=== PATIENT | female | born 1960 | race Caucasian/White ===

== ENCOUNTER 2018-05-20 00:20 | Outpatient (CLI) | payer BC, SELFPAY ==
--- NOTE | 2018-05-20 08:15 | MERGEMPI_ITS ---
*[facility]* *[facility]* [address] [place] [address] Myocardial Perfusion Imaging - SPECT Gilles protocol Date of study: 05/20/2018 *PATIENT PRESENTATION* Height: 172.7cm (68in) Blood Pressure: Weight: 95kg (209lb) BSA: 2.17m^2 Ordering physician: Dae Huff Impressions: - Normal perfusion and contraction by Tc99m Sestamibi Imaging. - Chest pain and borderline EKG changes without imaging correlate. Summary: 1. Myocardial perfusion imaging: No myocardial perfusion defects noted. 2. The calculated left ventricular ejection fraction after stress: 61%. LV global systolic function is normal. 3. Stress ECG conclusions: The stress ECG is borderline. The specificity of this test is limited by resting ECG abnormalities. Occasional atrial ectopy. 4. Stress: The target heart rate was achieved. The heart rate response to stress is exaggerated. There is a normal resting blood pressure with an appropriate response to stress. Stress-induced chest pain which resolved spontaneously. Exercise capacity is average for age. Indication: R07.9. History: Patient's presenting symptoms: asymptomatic. REASON FOR VISIT: PATIENT REPORTS INCREASE IN CHEST PAIN OCCURENCES WITHIN THE LAST YEAR DESPITE WEARING 2 NITRO PATCHES DAILY, REQUIRING PATIENT TO TAKE PO NITRO FOR CHEST PAIN RELIEF. CHEST PAIN IS REPORTED 8/10 STERNAL CHEST TIGHTNESS RADIATING TOWARDS BACK. PAIN OCCURS AT REST, HAS WOKEN PATIENT UP FROM SLEEP, AND LASTS UNTIL PATIENT TAKES PO NITRO. STRESS TEST RECOMMENDED BY CARDIOLOGY FOR FOLLOW UP. PAST MEDICAL HISTORY: CARDIAC SYNDROME X, HYPOTHYROIDISM, EPILEPSY. FAMILY HISTORY: NONE. SMOKING STATUS: NEVER SMOKER. EXERCISE ROUTINE: WALKS 2 MILES 3X/WEEK. Risk factors: Dyslipidemia. Cholesterol: 219mg/dl. HDL: 128mg/dl. LDL: 69mg/dl. Triglycerides: 33mg/dl. ALLERGIES: SULFA, PENICILLINS, SHELLFISH DERIVED, SULFAMETHOXAZOLE, TRIMETHOPRIM, PHENYTOIN. MEDICATIONS: CALCIUM, MAGNESIUM, & VITAMIN D, DAILY. CARBAMAZEPINE 1 TAB, BID. CITALOPRAM 10MG, DAILY. LEVOTHYROXINE 100MCG, DAILY. NITROGLYCERIN 0.4MG, PRN. NITROGLYCERIN 2 PATCHES, DAILY. OMEGA-3 FATTY ACIDS 2 EACH, DAILY. PANTOPRAZOLE 40MG, DAILY. VERAPAMIL 120MG, BID. Imaging Technique: Protocol: Gilles protocol. Acquisition: Gated SPECT; 1 day - rest/stress. The patient was imaged in the supine position. Attenuation correction used. Isotope administration: - Rest. Tc[99m]-sestamibi. Dose: 9.5mCi. Injection time: 10:00 AM. Injection to stress time: 00:45. - Stress. Tc[99m]-sestamibi. Dose: 32mCi. Injection time: 11:55 AM. 1-2 min before end of exercise Baseline ECG: SINUS RHYTHM. HEART RATE [address] depression in inferolateral leads. Stress protocol: + +---+ +---+ + + !Stage !HR !BP (mmHg) !Sat!Rhythm !Symptoms ! + +---+ +---+ + + !Baseline supine !60 !128/82 (97) !---! ! ! + +---+ +---+ + + !Baseline !65 !125/62 (83) !98%! ! ! !standing ! ! ! ! ! ! + +---+ +---+ + + !Stage I; 1.7mph,!122!150/74 (99) !---! !5 out of 10 ! !10degrees; 3 min! ! ! ! !chest discomfort! + +---+ +---+ + + !Stage II; !---! !---! !8 out of 10 ! !2.5mph, ! ! ! ! !chest ! !12degrees; 3 min! ! ! ! !discomfort, ! ! ! ! ! ! !moderate dyspnea! + +---+ +---+ + + !Peak stress !148! !---! ! ! + +---+ +---+ + + !Recovery; 1 min !106!194/88 (123)!---!Occasional !5 out of 10 ! ! ! ! ! !PAC's !chest discomfort! + +---+ +---+ + + !Recovery; 3 min !71 !160/78 (105)!---! !Resolved, 2 out ! ! ! ! ! ! !of 10 chest ! ! ! ! ! ! !discomfort ! + +---+ +---+ + + !Recovery; 6 min !75 !114/70 (85) !---! ! ! + +---+ +---+ + + * Stress results: Maximal heart rate during stress was 148bpm (91% of maximal predicted heart rate). The maximal predicted heart rate was 163bpm. The target heart rate was achieved. The heart rate response to stress is exaggerated. There is a normal resting blood pressure with an appropriate response to stress. The rate-pressure product for the peak heart rate and blood pressure was 08512us Hg/min. Stress-induced chest pain which resolved spontaneously. Exercise capacity is average for age. Stress ECG: TREADMILL PORTION OF EXERCISE STRESS TEST ENDED IN 05MIN 09SEC DUE TO PATIENT EXPERIENCING CHEST PAIN AND DYSPNEA. EXAGGERATED HEART RATE RESPONSE TO EXERCISE. APPROPRIATE BLOOD PRESSURE RESPONSE TO EXERCISE. MAXIMAL HEART RATE 148 BPM, 90% OF TARGET. APPROXIMATE METS ACHIEVED 7.05. OCCASIONAL PREMATURE ATRIAL CONTRACTION NOTED DURING RECOVERY PERIOD. CHEST PAIN REPORTED AT 2MIN 45SEC OF EXERCISE, INCREASING TO A MAX OF 8/10 CHEST TIGHTNESS WITH RADIATION TO NECKS/ARMS AND DYSPNEA. CHEST PAIN RESOLVED BY 3MIN RECOVERY. UPWARD SLOPING ST SEGMENT DEPRESSION NOTED IN LEADS II, III, AVF, V4, V5, V6 STARTING 3MIN INTO EXERCISE. HORIZONAL ST SEGMENT DEPRESSION NOTED IN SAME LEADS DURING RECOVERY, RETURNING TO BASELINE BY 4MIN RECOVERY. AVERAGE FUNCTIONAL CAPACITY. The stress ECG is borderline. The specificity of this test is limited by resting ECG abnormalities. Occasional atrial ectopy. Myocardial perfusion: Imaging information: gated. Left ventricular size is normal. No myocardial perfusion defects noted. Ventricular Function (Wall Motion): The calculated left ventricular ejection fraction after stress: 61%. LV global systolic function is normal. Study data: Mele Zavala MD supervised and was readily available during the procedure. This study was interpreted by [facility]. Study status: Routine. Consent: The risks, benefits, and alternatives to the procedure were explained to the patient and informed consent was obtained. Procedure: Initial setup. A baseline ECG was recorded. Surface ECG leads and manual cuff blood pressure measurements were monitored. Heart sounds: Normal. Lung sounds: Normal. Treadmill exercise testing was performed using the Gilles protocol. Study completion: All catheters inserted during the procedure were removed. The patient tolerated the procedure well and was discharged from the lab. Discharge: The patient left the laboratory in stable condition. Birthdate: Patient birthdate: 1960. Sex: Gender: female. Study date: Study date: 05/20/2018. Study time: 08:15 AM. Signature Documentation: - The imaging portion of this study was interpreted by [employer] Supervisor Mele Zavala MD. - The Stress ECG portion of this study was interpreted by Mele Zavala MD. Electronically signed by Mele Zavala 05/20/2018 17:44
== END 2018-05-20 00:40 ==
PROVIDERS: PCP Family Medicine; Visit Provider Internal Medicine Cardiovascular Disease
DX: R07.9 Chest pain, unspecified (principal); E03.9 Hypothyroidism, unspecified; I20.9 Angina pectoris, unspecified; G40.909 Epilepsy, unspecified, not intractable, without status epilepticus
CPT/HCPCS: 78452; 93017

== ENCOUNTER 2018-05-20 00:25 | Outpatient (CLI) | payer BC, SELFPAY ==
--- NOTE | 2018-05-20 09:55 | DI.MAMMO_ITS ---
SYMPTOM/DIAGNOSIS: SCREENING, Z12.31 MAMMOGRAMS: Mammograms were interpreted according to the usual protocol including computer analysis with CAD system, tomosynthesis and C view imaging. Comparison is made with prior examinations. Breast density, Category C. No suspicious masses or microcalcifications are seen. There is a question of an area of architectural distortion in the upper left breast seen on the mediolateral oblique view. This area should be further evaluated with spot compression views. Ultrasound may be indicated at that time. IMPRESSION: Additional views of the left breast as described above. Category 0. MQSA ASSESSMENT OF FINDINGS: Incomplete: Needs additional imaging evaluation. Category 0. Patient will receive a letter notifying them of these results. Bi-RADS category C. The breasts are heterogeneously dense, which may obscure small masses.
== END 2018-05-20 00:45 ==
PROVIDERS: PCP Family Medicine; Visit Provider Family Medicine
DX: Z12.31 Encounter for screening mammogram for malignant neoplasm of breast (principal); R92.8 Other abnormal and inconclusive findings on diagnostic imaging of breast
CPT/HCPCS: 77063; 77067

== ENCOUNTER 2018-05-22 00:43 | Outpatient (CLI) | payer BC, SELFPAY ==
--- NOTE | 2018-05-22 10:49 | DI.COMBO_ITS ---
SYMPTOM/DIAGNOSIS: F/U MAMMO, CB VIEWS, ? ARCHITECTURAL DISTORTION ADDITIONAL VIEWS LEFT BREAST AND LEFT BREAST ULTRASOUND: Additional images are interpreted according to the usual protocol including tomosynthesis and 2D imaging. Spot compression mediolateral and MLO views were performed for a questioned area of increased density and architectural distortion in the superior left breast. Dense tissue is seen but no mass is identified. Left breast ultrasound shows no evidence of a cyst or mass. Dense tissue is seen in the upper outer quadrant. IMPRESSION: Category 1, negative mammogram and left breast ultrasound. Yearly screening mammography is recommended. [facility] ASSESSMENT OF FINDINGS: Negative. Category 1. Patient will receive a letter notifying them of these results. Bi-RADS category C. The breasts are heterogeneously dense, which may obscure small masses.
== END 2018-05-22 01:03 ==
PROVIDERS: PCP Family Medicine; Visit Provider Family Medicine
DX: Z12.31 Encounter for screening mammogram for malignant neoplasm of breast (principal); R92.8 Other abnormal and inconclusive findings on diagnostic imaging of breast; N64.59 Other signs and symptoms in breast
CPT/HCPCS: 76642; 77063; 77067

== ENCOUNTER 2018-08-12 10:50 | Outpatient (CLI) | payer BC, SELFPAY ==
[2018-08-12 12:44] LABS: HCT 41.2 % (36.0-46.0); HGB 13.5 g/dL (12.0-15.5); Mean Corp. HGB Concentration 32.8 g/dL (32.0-36.0); Mean Corpuscular Hemoglobin 29.9 pg (27.0-33.0); Mean Corpuscular Volume 91.2 fL (80-95); Mean Platelet Volume 10.1 fL (8.0-11.0); Platelet Count 236 x1000/uL (130-400); RBC 4.52 m/cumm (4.00-5.20); RBC Distribution Width 13.3 % (11.7-14.6); White Blood Cell Count 5.39 k/cumm (4.4-10.8)
[2018-08-12 13:20] LABS: C-Reactive Protein 0.21 mg/dL (0.0-0.3); Magnesium 1.9 mg/dL (1.8-2.4)
[2018-08-12 14:40] LABS: ESR 10 MM/HR (0-30)
[2018-08-19 14:46] LABS: HLA-B27 Result Positive
== END 2018-08-12 11:10 ==
PROVIDERS: PCP Family Medicine; Visit Provider Family Medicine
DX: E03.9 Hypothyroidism, unspecified (principal); R79.0 Abnormal level of blood mineral; M54.5 Low back pain; G89.29 Other chronic pain
CPT/HCPCS: 36415; 85027; 85652; 86812; 83735; 86140

== ENCOUNTER 2019-02-18 12:12 | Outpatient (CLI) | payer BC, SELFPAY ==
[2019-02-18 13:47] LABS: TSH (W/Ref FT4) 1.44 uIU/mL (0.358-3.74)
== END 2019-02-18 12:32 ==
PROVIDERS: PCP Family Medicine
DX: E03.9 Hypothyroidism, unspecified (principal)
CPT/HCPCS: 36415; 84443

== ENCOUNTER 2019-03-03 00:52 | Outpatient (CLI) | payer BC, SELFPAY ==
[2019-03-03] MEDS: Barium Sulfate 60% W/V 355 ML BTL PO (10:28)
--- NOTE | 2019-03-03 10:34 | DI.RAD_ITS ---
SYMPTOMS/DIAGNOSIS: DYSPHAGIA, R13.10 BARIUM SWALLOW: Fluoroscopy Time: 1 minute 31 seconds The patient swallowed barium without difficulty. The aisha and hypopharynx are unremarkable. The esophagus is unremarkable. There is a very small hiatus hernia and no evidence of gastroesophageal reflux. SUMMARY: A small hiatus hernia is demonstrated. The examination is otherwise unremarkable.
== END 2019-03-03 01:12 ==
PROVIDERS: PCP Family Medicine; Visit Provider Family Medicine
DX: R13.10 Dysphagia, unspecified (principal); K44.9 Diaphragmatic hernia without obstruction or gangrene
CPT/HCPCS: 74220; J3490

== ENCOUNTER 2019-07-28 00:41 | Outpatient (CLI) | payer BC, SELFPAY ==
--- NOTE | 2019-07-28 07:00 | DI.US_ITS ---
EXAM: US ABDOMEN CLINICAL HISTORY: LIVER MODERATELY ENLARGED,R16.0,HEPATOMEGALY,? MASS OR LIVER ENLARGEMENT TECHNIQUE: Ultrasound abdomen performed using standard protocol. COMPARISON: No previous for comparison. FINDINGS: LIVER: Normal. No hepatomegaly. Liver measures 14.8 cm in length. GALLBLADDER: Status post cholecystectomy. KIDNEYS: Kidneys are symmetric in size. No evidence of renal calculi. No evidence of hydronephrosis. No renal mass or cyst identified. BILIARY SYSTEM: Common bile duct measures 4.5 mm. No intrahepatic biliary ductal dilation. PANCREAS: Normal where visualized. SPLEEN: Not enlarged. ABDOMINAL AORTA AND IVC: Visualized portions normal caliber. ASCITES: None seen. IMPRESSION: No evidence of hepatomegaly. Status post cholecystectomy.
== END 2019-07-28 01:01 ==
PROVIDERS: PCP Family Medicine; Visit Provider Naturopath
DX: R16.0 Hepatomegaly, not elsewhere classified (principal); Z90.49 Acquired absence of other specified parts of digestive tract
CPT/HCPCS: 76700

== ENCOUNTER 2019-11-18 01:45 | Outpatient (CLI) | payer BC, SELFPAY ==
--- NOTE | 2019-11-18 10:00 | DI.MAMMO_ITS ---
EXAM: MG MAMMO SCREENING CLINICAL HISTORY: screening, Z12.39 TECHNIQUE: Bilateral full field digital CC and MLO mammographic images were obtained with 3D tomosyn thesis and utilizing computer aided detection (CAD). COMPARISON: Available for comparison. FINDINGS: Masses/Architectural Distortion: There has been interval increase in size of a focal asymmetric densi ty in the medial aspect of the right breast seen on the craniocaudad view. Microcalcifications: No suspicious pleomorphic-type are seen. Skin Thickening/Nipple Retraction: None. IMPRESSION: 1. Increased size of an area of focal asymmetry in the medial right breast. 2. Additional imaging is recommended. Spot compression views and ultrasound are recommended for furt her evaluation. BI-RADS Cat 0 - Assessment Incomplete: Need additional imaging evaluation Breast Density - Category C - Heterogeneously dense The mammogram demonstrates the patient's breast tissue is dense. Dense breast tissue is very common a nd is not abnormal but dense breast tissue can make it harder to find cancer on a mammogram. Also, de nse breast tissue may increase their breast cancer risk. This information about the result of the [facility] mogram report was provided to the patient to raise their awareness. Use this report when you speak wi th the patient about their risks for breast cancer, which includes their family history. At that time , you may recommend for more screening tests (Ultrasound or MRI) as they might be useful based on the ir risk. A negative radiographic report should not delay biopsy if a dominant or clinically suspicious mass is present. Up to ten percent of cancers are not identified on mammography. A negative report may reinforce clinical impression. Adenosis and dense breasts may obscure an underlying neoplasm. False positive reports average 6 to 10%. Patient will receive a letter notifying them of these results.
== END 2019-11-18 02:05 ==
PROVIDERS: PCP Family Medicine; Visit Provider Family Medicine
DX: Z12.31 Encounter for screening mammogram for malignant neoplasm of breast (principal); R92.8 Other abnormal and inconclusive findings on diagnostic imaging of breast
CPT/HCPCS: 77063; 77067

== ENCOUNTER 2019-11-26 02:13 | Outpatient (CLI) | payer BC, SELFPAY ==
--- NOTE | 2019-11-26 09:15 | DI.MAMMO_ITS ---
EXAM: MG MAMMO SCREEN CALL BACK UNI CLINICAL HISTORY: F/U MAMMO, SIZE OF FOCAL ASYMMETRIC DENSITY RT. TECHNIQUE: Craniocaudal and mediolateral oblique Full Field Digital Mammography views of the right b reast with Computer Aided Diagnosis followed by Tomosynthesis and right breast ultrasound. COMPARISON: Priors available for comparison.. FINDINGS: Mammography/Tomosynthesis: Masses/Architectural Distortion: None seen. Microcalcifictions: No suspicious pleomorphic-type are seen. Skin Thickening/Nipple Retraction: None. Right breast US: Echotexture: Normal appearance of the glandular tissue. Shadowing: No suspicious foci. Cyst: None. Solid lesions: None seen. Ductal dilation: None. IMPRESSION: 1. No evidence of malignancy is noted. 2. Six-month follow-up mammogram is recommended. BI-RADS Cat 3 - 6 month - Probably Benign Finding: Recommend follow-up mammography in 6 months Breast Density - Category B - Scattered areas of fibroglandular density The findings were discussed with the patient on the date of the examination. A negative radiographic report should not delay biopsy if a dominant or clinically suspicious mass is present. Up to ten percent of cancers are not identified on mammography. A negative report may reinforce clinical impression. Adenosis and dense breasts may obscure an underlying neoplasm. False positive reports average 6 to 10%. Patient will receive a letter notifying them of these results.
== END 2019-11-26 02:33 ==
PROVIDERS: PCP Family Medicine; Visit Provider Family Medicine
DX: Z12.31 Encounter for screening mammogram for malignant neoplasm of breast (principal); R92.8 Other abnormal and inconclusive findings on diagnostic imaging of breast; N64.59 Other signs and symptoms in breast
CPT/HCPCS: 76642; 77063; 77067

== ENCOUNTER 2020-02-18 21:34 | Outpatient (REF) | payer BC, SELFPAY ==
[2020-02-18 21:52] LABS: Abs Immature Grans 0.01 k/cumm (0.0-0.09); Absolute Basophil Count 0.01 k/cumm (0.0-0.2); Absolute Eosinophil Count 0.08 k/cumm (0.0-0.7); Absolute Lymphocyte Count 1.39 k/cumm (1.2-3.4); Absolute Monocyte Count 0.37 k/cumm (0.11-0.7); Absolute Neutrophil Count 1.66 k/cumm (1.2-6.7); Basophils % 0.3; Eosinophils % 2.3; HCT 40.2 % (36.0-46.0); HGB 13.1 g/dL (12.0-15.5); Immature Grans % 0.3 %; Lymphocytes % 39.5; Mean Corp. HGB Concentration 32.6 g/dL (32.0-36.0); Mean Corpuscular Hemoglobin 29.8 pg (27.0-33.0); Mean Corpuscular Volume 91.6 fL (80-95); Mean Platelet Volume 10.8 fL (8.0-11.0); Monocytes % 10.5; Neutrophils % 47.1; Platelet Count 254 x1000/uL (130-400); RBC 4.39 m/cumm (4.00-5.20); White Blood Cell Count 3.52 k/cumm (4.4-10.8)
[2020-02-18 22:10] LABS: ALT 35 U/L (14-59); AST 21 U/L (15-37); Albumin 3.9 g/dL (3.4-5.0); Alkaline Phosphatase 118 U/L (46-116); Anion Gap 5.4 mmol/L (3-11); BUN 13 mg/dL (7-18); Bilirubin, Total 0.3 mg/dL (0.2-1.0); CO2 29.6 mmol/L (21.0-32.0); CREATININE 0.84 mg/dL (0.55-1.02); Calcium 8.9 mg/dL (8.5-10.1); Chloride 104 mmol/L (98-107); Glucose 95 mg/dL (74-106); Potassium 4.7 mmol/L (3.5-5.1); Sodium 139 mmol/L (136-145); Total Protein 7.4 g/dL (6.4-8.2)
== END 2020-02-18 21:54 ==
LOC: LBN 21:34
PROVIDERS: PCP Family Medicine; Visit Provider Nurse Practitioner Family
DX: Z01.818 Encounter for other preprocedural examination (principal)
CPT/HCPCS: 80053; 85025

== ENCOUNTER 2020-05-30 00:37 | Outpatient (CLI) | payer BC, SELFPAY ==
--- NOTE | 2020-05-30 | DI.US_ITS ---
EXAM: MG MAMMO DIAGNOSTIC UNI CLINICAL HISTORY: 6 MO F/U ABNORMAL MAMMO,R92.8 TECHNIQUE: Mammograms were interpreted according to the usual protocol including computer analysis w [employer] CAD system, tomosynthesis and C-view imaging. COMPARISON: FINDINGS: Right breast mammogram with additional mammographic views is interpreted in conjunction with right br east ultrasound. Today's examination was obtained to follow area of asymmetric density identified on prior mammogram November of this year. On today's examination there is question of slight interval inc rease in prominence on the CC view, no gross interval change on the MLO view. No other significant c hange in appearance of breast. Additional mammographic views show no significant interval change in appearance in comparison with ad ditional spot compression views obtained in November 2019. Breast ultrasound shows no evidence of a mas s or cyst. IMPRESSION: No specific evidence of malignancy at this time. Follow-up mammogram requested in 6 months, this kamaljit uld be a bilateral mammogram to resume annual screening of the contralateral breast. BI-RADS Category 3 - 6 month - Probably Benign Finding: Recommend follow-up mammography in 6 months Breast Density - Category C - Heterogeneously dense
--- NOTE | 2020-05-30 10:00 | DI.MAMMO_ITS ---
EXAM: MG MAMMO DIAGNOSTIC UNI CLINICAL HISTORY: 6 MO F/U ABNORMAL MAMMO,R92.8 TECHNIQUE: Mammograms were interpreted according to the usual protocol including computer analysis w [employer] CAD system, tomosynthesis and C-view imaging. COMPARISON: FINDINGS: Right breast mammogram with additional mammographic views is interpreted in conjunction with right br east ultrasound. Today's examination was obtained to follow area of asymmetric density identified on prior mammogram November of this year. On today's examination there is question of slight interval inc rease in prominence on the CC view, no gross interval change on the MLO view. No other significant c hange in appearance of breast. Additional mammographic views show no significant interval change in appearance in comparison with ad ditional spot compression views obtained in November 2019. Breast ultrasound shows no evidence of a mas s or cyst. IMPRESSION: No specific evidence of malignancy at this time. Follow-up mammogram requested in 6 months, this kamaljit uld be a bilateral mammogram to resume annual screening of the contralateral breast. BI-RADS Category 3 - 6 month - Probably Benign Finding: Recommend follow-up mammography in 6 months Breast Density - Category C - Heterogeneously dense
== END 2020-05-30 00:57 ==
PROVIDERS: PCP Family Medicine; Visit Provider Family Medicine
DX: R92.8 Other abnormal and inconclusive findings on diagnostic imaging of breast (principal); R92.2 Inconclusive mammogram
CPT/HCPCS: 76642; 77061; 77065; G0279

== ENCOUNTER 2020-05-30 03:34 | Outpatient (CLI) | payer BC, SELFPAY ==
[2020-05-30 10:40] LABS: TSH 1.11 uIU/mL (0.36-3.74)
== END 2020-05-30 03:54 ==
PROVIDERS: PCP Family Medicine; Visit Provider Family Medicine
DX: E03.9 Hypothyroidism, unspecified (principal)
CPT/HCPCS: 36415; 84443

== ENCOUNTER 2020-06-06 17:02 | Outpatient (REF) | payer BC, SELFPAY ==
--- NOTE | 2020-06-07 09:30 | SKI_PTH ---
PATIENT: Ольга Grider LOC: [facility] U#:[id number] AGE/SX: 59/F ROOM: RE06/06/[address]: Mary Ray, PhD [employer] : 1960 BED: DIS: 06/06/2020 SPEC #: [id number] RECD: 06/07/20 12:51 STATUS: JENNY REClementina #: [id number] CALLUM: 06/07/20 09:[address]: Mary Ray DEPT: Surgical Specimen RECD BY: Lizeth Weber ENTERED: 06/07/20 12:52 SP TYPE: PAGE HERNANDEZ DR: Kandis Avilez MD Tissues: 1 - SKIN BIOPSY(SHAVE/PUNCH) Procedures: SKIN LEVEL 4 Comments: [id number]
== END 2020-06-06 17:22 ==
LOC: LBN 17:02
PROVIDERS: PCP Family Medicine; Visit Provider Nurse Practitioner
DX: C44.519 Basal cell carcinoma of skin of other part of trunk (principal)
CPT/HCPCS: 88305

== ENCOUNTER 2021-06-06 11:31 | Outpatient (CLI) | payer BC, SELFPAY ==
[2021-06-06 12:36] LABS: Absolute Basophil Count 0.02 10^3/uL (0.0-0.2); Absolute Eosinophil Count 0.12 10^3/uL (0.0-0.7); Absolute Lymphocyte Count 1.54 10^3/uL (1.2-3.4); Absolute Monocyte Count 0.35 10^3/uL (0.1-0.8); Absolute Neutrophil Count 2.55 10^3/uL (1.2-6.7); Basophils % 0.4; Eosinophils % 2.6; HCT 37.6 % (36.0-46.0); HGB 12.3 g/dL (11.2-15.7); Lymphocytes % 33.6; MCH 30.1 pg (27.0-33.0); MCHC 32.7 % (32.0-36.0); MCV 91.9 fL (80-95); MPV 9.3 fL (8.0-11.0); Monocytes % 7.6; Neutrophils % 55.8; Nucleated RBC 0 %; Platelet Count 254 10^3/uL (130-400); RBC 4.09 10^6/uL (3.93-5.22); RDW 12.7 % (11.7-14.6); RDW-SD 42.7 fL; WBC 4.58 10^3/uL (4.4-10.8)
[2021-06-06 12:58] LABS: ALT 36 U/L (14-59); AST 21 U/L (15-37); Albumin 3.7 g/dL (3.4-5.0); Alkaline Phosphatase 112 U/L (46-116); Anion Gap 7.4 mmol/L (3-11); BUN 14 mg/dL (7-18); Bilirubin, Total 0.3 mg/dL (0.2-1.0); CO2 29.6 mmol/L (21.0-32.0); CREATININE 0.8 mg/dL (0.55-1.02); Calcium 9.1 mg/dL (8.5-10.1); Chloride 105 mmol/L (98-107); Glucose 106 mg/dL (74-106); Potassium 4.1 mmol/L (3.5-5.1); Sodium 142 mmol/L (136-145); TROPONIN-I 10.1 ug/mL (4.0-12.0); TSH 0.94 uIU/mL (0.36-3.74); Total Protein 7.6 g/dL (6.4-8.2)
== END 2021-06-06 11:32 | disposition home or self-care (01) ==
LOC: LOS 11:31
PROVIDERS: PCP Family Medicine; Visit Provider Family Medicine
DX: E03.9 Hypothyroidism, unspecified (principal); R23.8 Other skin changes; G40.309 Generalized idiopathic epilepsy and epileptic syndromes, not intractable, without status epilepticus; Z51.81 Encounter for therapeutic drug level monitoring
CPT/HCPCS: 36415; 80053; 80156; 84443; 85025

== ENCOUNTER 2021-06-06 11:53 | Outpatient (REF) | payer BC, SELFPAY ==
--- NOTE | 2021-06-06 11:30 | PAPFT_PTH ---
PATIENT: Ольга Grider LOC: [facility]#:[id number] AGE/SX: 60/F ROOM: RE06/06/[address]: Kandis Avilez MD : 1960 BED: DIS: 06/06/2021 SPEC #: [id number] RECD: 06/06/21 12:53 STATUS: WILMAIrma REQ #: [id number] CALLUM: 06/06/21 11:[address]: Kandis Avilez DEPT: [facility] Cytology RECD BY: Lizeth Weber Tissues: 1 - CX/ENDOCX FOR PAP SMEARS Procedures: PAP THIN PREP/UVM Screening HPV DNA PROBE Comments: [id number]
== END 2021-06-06 11:54 | disposition home or self-care (01) ==
LOC: LBN 11:53
PROVIDERS: PCP Family Medicine; Visit Provider Family Medicine
DX: Z12.4 Encounter for screening for malignant neoplasm of cervix (principal); Z11.51 Encounter for screening for human papillomavirus (HPV)
CPT/HCPCS: 88142; 87624

== ENCOUNTER 2022-06-12 21:20 | Outpatient (REF) | payer BC, SELFPAY ==
[2022-06-12 21:14] LABS: TSH (W/Ref FT4) 1.15 uIU/mL (0.36-3.74)
== END 2022-06-12 21:21 | disposition home or self-care (01) ==
LOC: LBN 21:20
PROVIDERS: Visit Provider Nurse Practitioner Family
DX: E03.9 Hypothyroidism, unspecified (principal)
CPT/HCPCS: 84443